=== PATIENT | male | born 1965 | race Caucasian/White ===

== ENCOUNTER 2017-07-28 14:00 | Outpatient (CLI) | payer BC ==
[~2017-07-28] VITALS: Ht 172.7 cm; Wt 117.0 kg
[~2017-07-28 14:00] MED LIST: ASPI-624 PO; CALC500T PO; CARV12.53 PO; CHLS4PK PO; CIPR500T78 PO; IBUP800T26 PO; LACT1CAP62 PO; LISI10TA2 PO; LOPE2CAP PO; LOVA40TA2 PO; METR500T PO; OMEG1CAP51 PO; OMEP20CA12 PO; ONDA4TAB8 PO
[2017-07-28] MEDS ORDERED: OMEG1CAP45 PO (15:12)
[2017-07-28] MEDS ORDERED: LOVA20TA2 PO (15:12)
[2017-07-28] MEDS ORDERED: OMEP20CA12 PO (15:12)
[2017-07-28] MEDS ORDERED: AMLO10TA2 PO (15:13)
[2017-07-28] MEDS ORDERED: LISI-552 PO (15:13)
== END 2017-07-28 15:17 ==
LOC: PREOP 14:00
PROVIDERS: ATTEND Surgery
DX: Z01.818 Encounter for other preprocedural examination (principal); Z12.11 Encounter for screening for malignant neoplasm of colon

== ENCOUNTER 2017-08-01 11:20 | Day surgery (SDC) | payer BC ==
[~2017-08-01] VITALS: Ht 172.7 cm; Wt 117.0 kg
[2017-08-01 11:20] VITALS: BP 118/76
[~2017-08-01 11:20] MED LIST changes: +AMLO10TA2 PO; +LISI-552 PO; +LOVA20TA2 PO; +OMEG1CAP45 PO
--- OUTSIDE RECORDS SUMMARY | 2017-08-01 11:24 | XMS REPORT | Continuity of Care Document ---
Author Author [facility] Organization [facility] Address Unknown Phone Unavailable Allergies Active Description Code Type Severity Reaction Onset Reported/Identified Relationship to Patient Clinical Status Yes BETA-BLOCKERS (BETA-ADRENERGIC BLOCKING AGTS) UNKNOWN OTHER Yes PENICILLINS UNKNOWN UNKNOWN Yes TETRACYCLINES UNKNOWN UNKNOWN Yes Penicillins [id number] Drug Allergy Unknown N/A 06/20/2013 Yes tetracycline [id number] Drug Allergy Unknown N/A 06/20/2013 Medications There is no data. Problems Date Dx Coded Attending Type Code Diagnosis Diagnosed By 06/20/2013 ROBB CASTRO MD Ot 733.6 TIETZE'S DISEASE 06/20/2013 ROBB CASTOR MD Ot 786.50 CHEST PAIN NOS 06/24/2013 AGUS JARQUIN FACC, GAGE FACP CCDS Ot 272.4 HYPERLIPIDEMIA NEC/NOS 06/24/2013 AGUS JARQUIN FACC, GAGE FACP CCDS Ot 401.9 HYPERTENSION NOS 06/24/2013 AGUS JARQUIN FACC, ALI FACP CCDS Ot 786.05 SHORTNESS OF BREATH 06/24/2013 AGUS JARQUIN FACC, GAGE FACP CCDS Ot 786.59 CHEST PAIN NEC 06/24/2013 AGUS JARQUIN FACC, GAGE FACP CCDS Ot V15.82 HISTORY OF TOBACCO USE 06/24/2013 AGUS JARQUIN FACC, GAGE FACP CCDS Ot V17.3 FAM HX-ISCHEM HEART DIS 06/24/2013 AGUS JARQUIN FACC, GAGE FACP CCDS Ot V58.69 OTH MED,LT,CURRENT USE 06/24/2013 AGUS JARQUIN FACC, ALI FACP CCDS Ot V85.38 BODY MASS INDEX 38.0-38.9, ADULT 11/20/2013 ELIESER FELICIANO Ot 787.91 DIARRHEA 07/20/2014 MARIA DEL ROSARIO MEDINA SENIOR RESERVATIONS AGENT Ot V02.54 09/02/2014 KATELYN JARQUIN, FLAVIO L Ot 272.4 09/02/2014 KATELYN JARQUIN, FLAVIO L Ot 401.9 09/15/2014 MARIA DEL ROSARIO MEDINA SENIOR RESERVATIONS AGENT Ot V02.54 09/15/2014 KATELYN JARQUIN, FLAVIO L Ot 272.4 09/15/2014 KATELYN JARQUIN, FLAVIO L Ot 401.9 09/15/2014 KATELYN JARQUIN, FLAVIO L Ot 272.4 09/15/2014 KATELYN JARQUIN, FLAVIO L Ot 401.9 05/21/2015 Ot I10 ESSENTIAL ( PRIMARY) HYPERTENSION 05/21/2015 Ot R11.2 NAUSEA WITH VOMITING, UNSPECIFIED 05/23/2015 Ot I10 05/23/2015 Ot R11.2 05/23/2015 KATELYN JARQUIN, FLAVIO L Ot 780.79 05/23/2015 KATELYN JARQUIN, FLAVIO L Ot 782.62 05/23/2015 KATELYN JARQUIN, FLAVIO L Ot 783.1 05/23/2015 KATELYN JARQUIN, FLAVIO L Ot 786.50 05/23/2015 MARIA DEL ROSARIO MEDINA SENIOR RESERVATIONS AGENT Ot V02.54 05/23/2015 KATELYN JARQUIN, FLAVIO L Ot 272.4 05/23/2015 KATELYN JARQUIN, FLAVIO L Ot 401.9 05/23/2015 KATELYN JARQUIN, FLAVIO L Ot 272.4 05/23/2015 KATELYN JARQUIN, FLAVIO L Ot 401.9 06/16/2015 MARIA DEL ROSARIO MEDINA SENIOR RESERVATIONS AGENT Ot V02.54 CARRIER, SUSP APARICIO METHICILLIN RESISTN S 06/16/2015 FLAVIO ZEPEDA MD L Ot 272.4 HYPERLIPIDEMIA NEC/NOS 06/16/2015 FLAVIO ZEPEDA MD L Ot 401.9 HYPERTENSION NOS 06/16/2015 KATELYN JARQUIN, FLAVIO L Ot 272.4 HYPERLIPIDEMIA NEC/NOS 06/16/2015 KATELYN JARQUIN, FLAVIO L Ot 401.9 HYPERTENSION NOS 04/25/2016 MARIA DEL ROSARIO MEDINA SENIOR RESERVATIONS AGENT Ot V02.54 CARRIER, SUSP APARICIO METHICILLIN RESISTN S 04/25/2016 FLAVIO ZEPEDA MD L Ot 272.4 HYPERLIPIDEMIA NEC/NOS 04/25/2016 KATELYN JARQUIN, FLAVIO L Ot 401.9 HYPERTENSION NOS 04/25/2016 FLAVIO ZEPEDA MD Ot 272.4 HYPERLIPIDEMIA NEC/NOS 04/25/2016 FLAVIO ZEPEDA MD L Ot 401.9 HYPERTENSION NOS 03/24/2017 FLAVIO ZEPEDA V70.0 ROUTINE GENERAL MEDICAL EXAMINATION AT A HEALTH CARE FACILITY 03/24/2017 FLAVIO ZEPEDA Z00.00 ENCOUNTER FOR GENERAL ADULT MEDICAL EXAMINATION WITHOUT ABNORMAL FINDINGS 03/24/2017 FLAVIO ZEPEDA V70.0 ROUTINE GENERAL MEDICAL EXAMINATION AT A [facility] CARE FAC[facility] 03/24/2017 FLAVIO ZEPEDA Z00.00 ENCOUNTER FOR GENERAL ADULT MEDICAL EXAMINATION WITHOUT ABNORMAL FINDINGS 03/24/2017 FLAVIO ZEPEDA V70.0 ROUTINE GENERAL MEDICAL EXAMINATION AT A HEALTH CARE FACILITY 03/24/2017 FLAVIO ZEPEDA Z00.00 ENCOUNTER FOR GENERAL ADULT MEDICAL EXAMINATION WITHOUT ABNORMAL FINDINGS Procedures There is no data. Results Test Result Range PSA Yearly Screen - 03/24/17 08:40 PSA TOTAL 0.2 ng/mL 0.0-4.0 Encounters ACCT No. Visit Date/Time Discharge Status Pt. Type Provider Facility Loc./Unit Complaint [id number] 07/25/2017 05:28:00 07/25/2017 23:59:59 CLS Outpatient LYNNE MACHADO MD [facility] PREOP COLONOSCOPY [id number] 08/14/2014 08:22:00 08/14/2014 23:59:59 CLS Outpatient FLAVIO ZEPEDA MD [facility] LAB HTN/HLP [id number] 08/13/2014 14:22:00 08/13/2014 23:59:59 CLS Outpatient FLAVIO ZEPEDA MD [facility] LAB HTN,HLP [id number] 11/20/2013 21:38:00 11/20/2013 23:37:00 DIS Emergency ELIESER FELICIANO [facility] ER DIARRHEA [id number] 07/03/2013 14:28:00 07/03/2013 23:59:59 CLS Outpatient MARIA DEL ROSARIO MEDINA [facility] LAB MRSA CULTURE POSITIVE [id number] 06/24/2013 07:41:00 06/24/2013 13:20:00 DIS Outpatient AGUS JARQUIN FACC, GAGE HEALY CCDS [facility] CATH CHEST PAIN, DYSPNEA,HTN,OBESITY [id number] 06/20/2013 21:57:00 06/20/2013 23:45:00 DIS Emergency MATTHEW JARQUIN, ROBB Perez [facility] ER POSS BROKEN RIB;INJ [id number] 04/19/2013 11:13:00 04/19/2013 23:59:59 CLS Outpatient FLAVIO ZEPEDA MD [facility] CARD [id number] 08/01/2017 12:00:00 PEN Preadmit LYNNE MACHADO MD [facility] ENDO SCREENING [id number] 05/23/2015 16:01:00 Document Registration [id number] 05/22/2015 14:33:00 Document Registration [id number] 03/24/2017 13:45:00 03/24/2017 23:59:00 DIS Outpatient FLAVIO ZEPEDA
[2017-08-01] MEDS ORDERED: NS IV 500 ML 500 ML IV PRN (11:25)
[2017-08-01] MEDS ORDERED: LIDOCAINE JELLY 2% (XYLOCAINE) 5 ML TUBE MM PRN (11:30)
[2017-08-01] MEDS ORDERED: NS IV 500 ML 500 ML ONE (11:40)
--- NOTE | 2017-08-01 12:17 | Conscious Sedation/ASA ---
Conscious Sedation Pre-Proced Time Reviewed: 11:30 ASA Class: 2 Airway Mallampati Classification: ([place] appropriate class) I. II. III, IV Lungs Heart ASA score ASA 1: a normal healthy patient ASA 2: a patient with a mild systemic disease (mid diabetes, controlled hypertension, obesity ASA 3: a patient with a severe systemic disease that limits activity (angina , COPD, prior Myocardial infarction) ASA 4: a patient with an incapacitating disease that is a constant threat to life (CHF, renal failure) ASA 5: a moribund patient not expected to survive 24 hrs. (ruptured aneurysm) ASA 6: a declared brain patient whose organs are being harvested. For emergent operations, add the letter E after the classification Grade 2 Sedation Plan: Analgesia, Amnesia, Plan communicated to team members, Discussed options with patient/fam, Discussed risks with patient/fam Note The patient is an appropriate candidate to undergo the planned procedure, sedation, and anesthesia. The patient immediately re-assessed prior to indication. LYNNE MACHADO MD Aug 01, 2017 12:17 pm
--- NOTE | 2017-08-01 12:17 | Progress Note-Pre Operative ---
Pre-Operative Progress Note H&P Reviewed The H&P was reviewed, patient examined and no changes noted. Date Seen by Provider: Aug 01, 2017 Time Seen by Provider: 11:30 Date H&P Reviewed: Aug 01, 2017 Time H&P Reviewed: :30 Pre-Operative Diagnosis: screening colonoscopy LYNNE MACHADO MD Aug 01, 2017 12:17 pm
[2017-08-01] MEDS ORDERED: LIDOCAINE JELLY 2% (XYLOCAINE) 5 ML TUBE ONE (12:26)
[2017-08-01] MEDS ORDERED: MIDAZOLAM 2 MG/2 ML (VERSED) VIAL ONE ×4 (12:26→12:27)
[2017-08-01] MEDS ORDERED: fentaNYL INJECTION 100 MCG/2 ML AMP ONE ×2 (12:26)
[2017-08-01] MEDS ORDERED: HYDROcodone/APAP 5 MG/325 MG (LORTAB) TAB PO PRN (12:30)
[2017-08-01] MEDS ORDERED: ONDANSETRON 4 MG/2 ML (SDV) Z0FRAN IV PRN (12:30)
[2017-08-01] MEDS ORDERED: morphine INJ 10 MG/ML 1ML (SYR OR VIAL) IV PRN (12:30)
[2017-08-01] MEDS ORDERED: ACETAMINOPHEN 325 MG TABLET/CAPLET (TYLENOL) PO PRN (12:30)
[2017-08-01] MEDS: fentaNYL INJECTION 100 MCG/2 ML AMP IVP PRN ×4 (12:35→12:53)
[2017-08-01] MEDS: MIDAZOLAM 2 MG/2 ML (VERSED) VIAL IVP PRN ×4 (12:39→12:52)
--- NOTE | 2017-08-01 13:11 | Progress Note-Post Operative ---
Post-Operative Progess Note Surgeon (s)/[place] (s) Surgeon LYNNE MACHADO MD [place]: none Pre-Operative Diagnosis screening colonoscopy Post-Operative Diagnosis chronic stage 1 ext and int hemorrhoids Procedure & Operative Findings Date of Procedure 08/01/17 Procedure Performed/Findings CS Anesthesia Type CS Estimated Blood Loss Estimated blood loss (mL): minimal Specimens/Packing Specimens Removed none LYNNE MACHADO MD Aug 01, 2017 1:11 pm
--- NOTE | 2017-08-01 13:13 | Discharge Inst-Surgical ---
D/C Lap Instructions-CARTER Follow Up 10 yrs Activity as tolerated High Fiber Diet 25g or more per day Avoid Alcohol, Caffeine, Spicy [place] and Acid foods. Drink 64 fluid oz or more of fluids per day. Symptoms to Report: Fever over 101 degree F, Nausea/Vomiting If any problems/questions: Contact your physician or go to Emergency Room LYNNE MACHADO MD Aug 01, 2017 1:13 pm
[2017-08-01 13:35] VITALS: BP 110/65
[2017-08-01 14:05] VITALS: BP 117/66
[2017-08-01 14:30] VITALS: BP 117/66
--- NOTE | 2017-08-01 16:36 | OPERATIVE REPORT ---
DATE OF SERVICE: 08/01/2017 ATTENDING PRIMARY CARE PHYSICIAN: Dr. Lubna Manuel. PREOPERATIVE DIAGNOSIS: Screening colonoscopy. POSTOPERATIVE DIAGNOSIS: Chronic stage II external and internal hemorrhoids. PROCEDURE: Colonoscopy. SURGEON: Dr. Lynne Machado. ANESTHESIA: Conscious sedation. ESTIMATED BLOOD LOSS: Minimal. FINDINGS: Chronic stage II external and internal hemorrhoids. Prostate gland was palpable and appeared normal. The remainder of the colon and rectum appeared normal. DISPOSITION: The patient tolerated the procedure well. The patient is a 51-year-old male referred over to us for screening colonoscopy. He states that he is doing well for the most part. He does have occasional episodes of constipation; however, this is likely due to his diet as well as his occupation. He is an over the road explosives truck driver and states that he would have to minimize water intake and not use the bathroom for greater than 8 hours. He does not report any red blood per rectum nor any dark tarry stools. He also does not report any family history of colon cancer; however, but does believe that his maternal grandfather did have prostate cancer. The patient was brought to the endoscopy suite, laid in the left lateral decubitus position. After adequate IV pain and sedating medications and conscious sedation anesthesia, a digital rectal examination was performed. Mild chronic stage II external and internal hemorrhoids identified, which were not actually edematous nor inflamed and no bleeding. Normal sphincter tone was felt and there were no palpable masses. Prostate gland was palpable and appeared normal. The endoscope was then intubated to the anus and rectum gently insufflated. The endoscope was then advanced through the valves of [place] in the rectum with no polyps or any neoplasms identified. We then proceeded through the sigmoid colon where no diverticulosis identified. The endoscope was then advanced to the remainder of the descending, transverse, ascending colon to the cecum. These segments looked normal as well. There were no polyps or any neoplasms identified throughout the colon or rectum. The endoscope was then slowly withdrawn while taking a second look and suctioning of residual air with no additional findings. The patient tolerated the procedure well. We will recommend continued medical management with a high fiber diet with at least 30 grams of fiber per day as well as at least 64 fluid ounces of water to promote soft stools on a daily basis. From our standpoint, he does not need another colonoscopy for another 10 years. Job ID: [id number] DocumentID: [id number] Dictated Date: 08/01/2017 13:18:19 Press Set Up Date: 08/01/2017 16:36:03 Dictated By: LYNNE MACHADO MD MTDD
== END 2017-08-01 14:30 | disposition home or self-care (01) ==
LOC: ENDO 11:20
PROVIDERS: ATTEND Surgery
DX: Z12.11 Encounter for screening for malignant neoplasm of colon (principal); K64.1 Second degree hemorrhoids; Z80.42 Family history of malignant neoplasm of prostate; I10 Essential (primary) hypertension; F17.220 Nicotine dependence, chewing tobacco, uncomplicated; Z79.899 Other long term (current) drug therapy